=== PATIENT | female | born 1950 | race Caucasian/White ===

== ENCOUNTER 2017-07-14 17:47 | Emergency (ER) | payer MEDICARE, OTHER ==
[2017-07-14] MEDS ORDERED: DIPHTH,PERTUSS(ACELL),TET VAC 0.5 ML VIAL IM ONE ×2 (18:07→18:08)
--- NOTE | 2017-07-14 18:17 | ERNOTE ---
Medical Problem HPI - General Chief Complaint: Laceration Time Seen by Provider: 07/14/17 18:03 Source: patient Exam Limitations: no limitations - Immun/Allergies/Home Medications Immunizations: IMMUNIZATION HX Immunizations Up to Date Yes History of Influenza Vaccine No Hx Pneumococcal Vaccination No Allergies/Adverse Reactions: Allergies hydrocodone bitartrate [From Vicodin] Allergy (Intermediate, Verified 07/14/17 18:00) Headache Severe hydromorphone [Hydromorphone] Allergy (Intermediate, Verified 07/14/17 18:00) Other Rash levofloxacin [From Levaquin] Allergy (Intermediate, Verified 07/14/17 18:00) Hives loratadine [From Claritin] Allergy (Intermediate, Verified 07/14/17 18:00) Headache oxycodone [Oxycodone] Allergy (Intermediate, Verified 07/14/17 18:00) Headache Severe raloxifene HCl [From Evista] Allergy (Intermediate, Verified 07/14/17 18:00) Headache sulfadoxine [Sulfadoxine] Allergy (Intermediate, Verified 07/14/17 18:00) Headache tramadol Allergy (Intermediate, Verified 07/14/17 18:00) Headache Severe monosodium glutamate Allergy (Verified 07/14/17 18:00) salicylamide [From Pain Relief] Allergy (Verified 07/14/17 18:00) Pt indicates an allergy to most pain killers Sulfa (Sulfonamide Antibiotics) [Sulfa(Sulfonamide Antibiotics)] Allergy ( Verified 07/14/17 18:00) trolamine salicylate [From Pain Relief] Allergy (Verified 07/14/17 18:00) Pt indicates an allergy to most pain killers Home Medications: HOME MEDICATIONS Calcium Carbonate/Vitamin D3 [Calcium 600 + Vit D Tablet] 1 each PO DAILY [Last Taken Unknown] Gabapentin [Neurontin] 200 mg PO DAILY 06/06/13 [Last Taken Unknown] Multivitamins [Multivitamin Katie] 1 cap PO DAILY 06/06/13 [Last Taken Unknown] [place]-3 Fatty Acids [Fish Oil] 300 mg PO DAILY 06/06/13 [Last Taken Unknown] SUMAtriptan SUCCINATE [Imitrex] 50 mg PO DAILY PRN 06/06/13 [Last Taken Unknown] Anastrozole [Arimidex] 1 mg PO DAILY 08/02/14 [Last Taken Unknown] Cholecalciferol (Vitamin D3) [Vitamin D] 1,000 unit PO DAILY 08/02/14 [Last Taken Unknown] - History of Present History Narrative: Patient was walking up stairs, tripped, fell forward on her arms first then hit her head against a ledge. She denies any loss of consciousness, sustained a scalp laceration that is bleeding. She denies any significant pain or other injury, ambulated into the ER, no nausea, no blood thinners Date (Duration): 07/14/17 Time (Timing): 17:30 Review of Systems - Review of Systems Constitutional: Absent: recent illness, fever EYE: Absent: vision changes ENT: Absent: sore throat Respiratory: Absent: shortness of breath Cardiology: Absent: chest pain Gastrointestinal/Abdominal: Absent: nausea, vomiting, abdominal pain Genitourinary: Present: no symptoms reported Musculoskeletal: Present: no symptoms reported. Absent: joint pain Skin: Present: See HPI Neurological: Absent: headache, weakness, numbness - Patient's Past Medical History Patient History - Medical: No pertinent hx Patient History - Cardiac/Respiratory: No pertinent hx Patient History - Cancer: Breast Patient History - Surgical Procedures: Cancer Surgery, , D & C, Tubal Ligation, Other Patient History - Other: None LMP (females 10-50): Menopausal - Social History Living Situations: home Psych History: No pertinent hx Smoking Status: Never smoker Alcohol Use: none Drug Use: none - Immunizations Immunizations Up to Date: No - not sure Hx Pneumococcal Vaccination: No History of Influenza Vaccine: No Physical Exam - Physical Exam General Appearance: Present: wd/wn, alert, no apparent distress Head Exam: Present: normal inspection, lacerations - scalp laceration on top of head,minimally bleeding Eye Exam: Normal inspection: bilateral, PERRL: bilateral Neck: Present: normal inspection, nontender, supple, full range of motion Respiratory: Present: no respiratory distress, normal breath sounds, no accessory muscle use, chest nontender, lungs clear Cardiovascular/Chest: Present: regular rate, rhythm, no murmur Back Exam: Present: normal range of motion, no CVA tenderness, no vertebral tenderness Extremity Exam: Present: normal inspection, normal range of motion Neurological Exam: Present: alert, oriented, normal mood/affect, no motor/ sensory deficits Skin Exam: Present: normal color, warm/dry ED Progress - Vital Signs Patient's Vital Signs:: I have reviewed the patient's vital signs. Vital Signs: Vital Signs 07/14/17 17:55 Temperature 36.4 C L Pulse Rate 71 Respiratory 14 Rate Blood Pressure 162/82 O2 Sat by Pulse 99 Oximetry - CT/Ultrasound CT/Ultrasound Narrative: CT head: no acute - Progress/Reassessment Chief Complaint: Laceration Progress Note-Subjective: 07/14/17 18:17 discussed possible imaging as patient is over 65 to rule out intra cranial bleeding 07/14/17 19:[address] Procedures Head Length of Repair/Wound (cm): 3 Wound's Depth/Shape: into subcutaneous Wound Explored: clean, no foreign body Wound Intervention: irrigated w/saline Wound Repaired With: ernie Number of Sutures: 4 Departure Clinical Impression: Scalp laceration Qualifiers: Encounter type: initial encounter Qualified Code(s): S01.01XA - Laceration without foreign body of scalp, initial encounter - Departure Disposition: Home self-care Condition: Good Instructions: Stitches, Bandy, or Adhesive Wound Closure, [id number] Additional Instructions: have the ernie removed in 10 days take tylenol if you have a headache Referrals: Selvin Huff MD [Primary Care Provider] -
[2017-07-14 19:26] VITALS: BP 149/81
== END 2017-07-14 19:24 | disposition home or self-care (01) ==
LOC: ER 17:47
PROC: 0JQ00ZZ Repair Scalp Subcutaneous Tissue and Fascia, Open Approach (ICD-10-PCS; principal; 2017-07-14)
DX: S01.01XA Laceration without foreign body of scalp, initial encounter (principal); Z85.3 Personal history of malignant neoplasm of breast; W10.8XXA Fall (on) (from) other stairs and steps, initial encounter; W22.8XXA Striking against or struck by other objects, initial encounter; Z23 Encounter for immunization